=== PATIENT | female | born 1985 | race Caucasian/White ===

== ENCOUNTER 2017-01-16 15:20 | Emergency (ER) | payer MEDICAID ==
[2017-01-16 15:46] VITALS: RESP 16; O2SAT 98
--- NOTE | 2017-01-16 17:02 | EDPHY ---
H & P Stated Complaint: Possible Miscarriage/Abdominal Pain Time Seen by Provider: 01/16/17 16:19 HPI/ROS: This is a 31-year-old female presenting to the emergency department complaining of intermittent lower abdominal pain with intermittent vaginal bleeding. Patient states she did take a test sometime in November questionable whether with positive, LMP October 2016. denies any nausea vomiting diarrhea REVIEW OF SYSTEMS: Constitutional: (-)fever (-)chills (-)changes appetite Eyes: (-)discharge (-)pain ENT: (-)sore throat (-)ear pain Respiratory: (-)shortness of breath Cardiac: (-)chest pain (-)palpitations Gastrointestinal: (+)lower abdominal pain (-)nausea/vomit Genitourinary: (-)dysuria (+)intermittent vag bleed x 1month Musculoskeletal: (-)back pain Skin: (-)rashes Neurological: (-) headache (-)dizziness Source: Patient - Personal History LMP (Females 10-55): Over 28 Days Ago Current Tetanus/Diphtheria Vaccine: Yes Current Tetanus Diphtheria and Acellular Pertussis (TDAP): Yes - Medical/Surgical History Hx Asthma: Yes Hx Chronic Respiratory Disease: No Hx Diabetes: No Hx Cardiac Disease: No Hx Renal Disease: No Hx Cirrhosis: No Hx Alcoholism: No Hx HIV/AIDS: No Hx Splenectomy or Spleen Trauma: No Other PMH: Hep C - Family History Significant Family History: No pertinent family hx - Social History Smoking Status: Current some day smoker Alcohol Use: Occasionally (had 2 beers last night) - Physical Exam Exam: CONSTITUTIONAL: patient appeared well nourished, non-ill appearing and normally developed. No acute distress. Vital signs as documented. HEENT: NCAT. NECK: FROM RESP: Non-labored resp effort, airway patent, CTAB CARDIAC: RRR w/o murmur, renu. Normal S1/S2 GI: (+)suprapubic/LLQ/RLQ TTP (-)LLQ rebound tenderness : Pelvic exam: The vulva was normal no lesions. The vagina did not have significant discharge. The cervix was closed (+)blood in the vault and no purulent drainage. The uterus was normal size and nontender. The adnexa had no masses and no tenderness. The exam was performed with a grain trimmer Roderick BREWER. NEURO: AAOx3 NAD EXTREMITIES: (+)FROM without difficulty SKIN: (-)rash. LYMPH: No lymphadenopathy PSYCH: Normal affect, calm, no distress Constitutional: Initial Vital Signs Temperature (C) 37.0 C 01/16/17 15:40 Heart Rate 80 01/16/17 15:40 Respiratory Rate 16 01/16/17 15:40 Blood Pressure 101/81 H 01/16/17 15:40 O2 Sat (%) 98 01/16/17 15:40 O2 Delivery Mode Room Air Allergies/Adverse Reactions: azithromycin Allergy (Verified 01/16/17 15:46) Home Medications: Medication Instructions Recorded NK [No Known Home Meds] 01/16/17 Medical Decision Making - Diagnostics Imaging: Findings: An intrauterine gestational sac is identified, with a mean sac diameter of 2.10 cm, which corresponds to an estimated gestational age of 7 weeks, 1 day. However, no pole or yolk sac is noted. There is surrounding subchorionic hemorrhage around the gestational sac, measuring at least 3.5 x 1.5 cm. The cervix appears closed. The left ovary measures 2.4 x 2.4 x 1.8 cm. The right ovary measures 2.5 x 2.3 x 1.2 cm. Color Doppler/duplex and spectral imaging of the ovaries demonstrate no torsion. No significant adnexal free fluid or adnexal masses. Impression: 1. Empty intrauterine gestational sac, without pole or yolk sac, corresponding to 7 weeks, 1 day, likely representing incomplete . 2. No adnexal masses or ovarian torsion. 3. No pole noted. 4. Subchorionic hemorrhage. ED Course/Re-evaluation: This is a 31-year-old female presenting to the emergency department complaining of intermittent lower abdominal pain with intermittent vaginal bleeding. Patient states she did take a test sometime in November questionable whether with positive, LMP October 2016. denies any nausea vomiting diarrhea. Discussed the plan of care: CMP CBC quant (1367) level today, ultrasound which shows 7 weeks Ob(+) sac (-) pole. Clinical impression incomplete miscarriage, other differential diagnosis considered but not limited to threatened miscarriage, ectopic and ovarian torsion Discharge home---> stable, discussed discharge instructions 1. you have been given the number for [facility], call the number in the morning for follow-up appointment for tomorrow 2. If at any point in time throughout the night morning you have severe abdominal pain nausea vomiting increased amount of vaginal bleeding return emergency department 3. You have also been given the number to the [facility], follow-up was needed for primary care. Patient verbalized understanding of discharge instructions Differential Diagnosis: Clinical impression incomplete miscarriage, other differential diagnosis considered but not limited to threatened miscarriage, ectopic and ovarian torsion Consult/Admit Bed Type: Consulted with Dr. Gamino cook enchilada @5, patient to follow up women[facility] - Data Points Laboratory Results: Laboratory Results 01/16/17 17:03 01/16/17 17:03 01/16/17 01/16/17 01/16/17 Unknown 17:03 17:03 WBC 7.08 10^3/uL 10^3/uL (3.80-9.50) RBC 4.25 10^6/uL 10^6/uL (4.18-5.33) Hgb 12.0 g/dL L g/dL (12.6-16.3) Hct 36.5 % L % (38.0-47.0) MCV 85.9 fL fL (81.5-99.8) MCH 28.2 pg pg (27.9-34.1) MCHC 32.9 g/dL g/dL (32.4-36.7) RDW 14.1 % % (11.5-15.2) Plt Count 305 10^3/uL 10^3/uL (150-400) MPV 9.0 fL fL (8.7-11.7) Neut % (Auto) 44.9 % % (39.3-74.2) Lymph % (Auto) 45.5 % H % (15.0-45.0) [place] % (Auto) 8.1 % % (4.5-13.0) Eos % (Auto) 0.6 % % (0.6-7.6) Baso % (Auto) 0.6 % % (0.3-1.7) Nucleat RBC Rel Count 0.0 % % (0.0-0.2) Absolute Neuts (auto) 3.19 10^3/uL 10^3/uL (1.70-6.50) Absolute Lymphs (auto) 3.22 10^3/uL H 10^3/uL (1.00-3.00) Absolute Monos (auto) 0.57 10^3/uL 10^3/uL (0.30-0.80) Absolute Eos (auto) 0.04 10^3/uL 10^3/uL (0.03-0.40) Absolute Basos (auto) 0.04 10^3/uL 10^3/uL (0.02-0.10) Absolute Nucleated RBC 0.00 10^3/uL 10^3/uL (0-0.01) Immature Gran % 0.3 % % (0.0-1.1) Immature Gran # 0.02 10^3/uL 10^3/uL (0.00-0.10) Sodium 139 mEq/L mEq/L (134-144) Potassium 4.6 mEq/L mEq/L (3.5-5.2) Chloride 106 mEq/L mEq/L (97-110) Carbon Dioxide 24 mEq/l mEq/l (22-31) Anion Gap 9 mEq/L mEq/L (8-16) BUN 8 mg/dL mg/dL (7-23) Creatinine 0.6 mg/dL mg/dL (0.6-1.0) Estimated GFR > 60 Glucose 86 mg/dL mg/dL (70-100) Calcium 9.3 mg/dL mg/dL (8.5-10.4) Total Bilirubin 0.6 mg/dL mg/dL (0.1-1.4) AST 56 IU/L H IU/L (14-46) ALT 93 IU/L H IU/L (9-52) Alkaline Phosphatase 91 IU/L IU/L (38-126) Total Protein 7.8 g/dL g/dL (6.3-8.2) Albumin 4.3 g/dL g/dL (3.5-5.0) Beta HCG, Quant 1367.80 mIU/mL H mIU/mL (0-4.83) Urine RBC 1-3 /hpf /hpf (0-3) Urine WBC 3-5 /hpf H /hpf (0-3) Ur Epithelial Cells TRACE /lpf /lpf (NONE-1+) Urine Bacteria 1+ /hpf H /hpf (NONE SEEN) Urine Mucus TRACE /lpf /lpf (NONE-1+) Medications Given: Discontinued Medications Sodium Chloride (Ns) 1,000 mls @ 0 mls/hr IV ONCE ONE PRN Reason: Wide Open Stop: 01/16/17 17:54 Last Admin: 01/16/17 17:56 Dose: 1,000 mls Oxycodone/Acetaminophen (Percocet 5/325) 2 tab PO EDNOW ONE Stop: 01/16/17 20:10 Last Admin: 01/16/17 20:17 Dose: 2 tab Departure - Departure Disposition: Home, Routine, Self-Care Clinical Impression: Incomplete Condition: Good Instructions: Miscarriage (ED) Additional Instructions: Need to follow up with [facility], call tomorrow morning for a follow-up appointment. Referrals: Alicia Gamino DO [Doctor of Osteopathy] - As per Instructions [facility],. [Clinic] - As per Instructions
[2017-01-16 17:15] LABS: % IMMATURE GRANULYOCYTES 0.3 % (0.0-1.1); ABSOLUTE IMMATURE GRANULOCYTES 0.02 10^3/uL (0.00-0.10); ADD DIFF? NO; ADD MORPH? NO; ADD SCAN? NO; ATYPICAL LYMPHOCYTE FLAG 20 (0-99); FRAGMENT RBC FLAG 0 (0-99); HEMATOCRIT 36.5 % (38.0-47.0); LEFT SHIFT FLG 0 (0-99); LIPEMIA HEMOLYSIS FLAG 80 (0-99); MEAN CELL HEMOGLOBIN 28.2 pg (27.9-34.1); MEAN CELL HEMOGLOBIN CONCENTR. 32.9 g/dL (32.4-36.7); MEAN CELL VOLUME 85.9 fL (81.5-99.8); PLATELET CLUMPS FLAG 0 (0-99); PLATELET COUNT 305 10^3/uL (150-400); RED BLOOD CELL COUNT 4.25 10^6/uL (4.18-5.33); RED CELL DISTRIBUTION WIDTH 14.1 % (11.5-15.2)
[2017-01-16 17:28] LABS: BACTERIA 1+ /hpf (NONE SEEN); MUCUS TRACE /lpf (NONE-1+)
[2017-01-16 17:30] LABS: ALANINE AMINOTRANSFERASE 93 IU/L (9-52); ALBUMIN 4.3 g/dL (3.5-5.0); ALKALINE PHOSPHATASE 91 IU/L (38-126); ANION GAP 9 mEq/L (8-16); ASPARTATE AMINOTRANSFERASE 56 IU/L (14-46); BILIRUBIN,TOTAL 0.6 mg/dL (0.1-1.4); CALCIUM 9.3 mg/dL (8.5-10.4); CARBON DIOXIDE 24 mEq/l (22-31); CHLORIDE 106 mEq/L (97-110); CREATININE 0.6 mg/dL (0.6-1.0); GLOMERULAR FILTRATION RATE > 60; GLUCOSE 86 mg/dL (70-100); POTASSIUM 4.6 mEq/L (3.5-5.2); SODIUM 139 mEq/L (134-144); TOTAL PROTEIN 7.8 g/dL (6.3-8.2)
[2017-01-16] MEDS ORDERED: NS 1,000 ML IV ONE (17:53)
[2017-01-16] MEDS ORDERED: OXYCODONE/APAP 5/325 TAB PO ONE (20:09)
[2017-01-16 20:19] VITALS: BP 130/79; PULSE 77; TEMP 98.2
== END 2017-01-16 20:25 | disposition home or self-care (01) ==
DX: O03.4 Incomplete spontaneous abortion without complication (principal); J45.909 Unspecified asthma, uncomplicated; F17.200 Nicotine dependence, unspecified, uncomplicated